=== PATIENT | female | born 1990 | race Caucasian/White ===

== ENCOUNTER 2016-11-26 10:42 | Day surgery (SDC) | payer OTHER ==
[~2016-11-26] VITALS: Ht 175.3 cm; Wt 90.7 kg
[~2016-11-26 10:42] MED LIST: ACET50TA PO; IBUP80TA PO; prenatal vitamins PO
[2016-11-26] MEDS ORDERED: LR 1,000 ML IV ONE (11:00)
[2016-11-26] MEDS ORDERED: TYLE500T78 PO (11:15)
[2016-11-26 11:22] LABS: CONTROL LINE UCG INT CTR LINE PRESENT
[2016-11-26] MEDS ORDERED: MIDAZOLAM INJ 2 MG/2 ML VIAL (J2250) As Ordered ONE (12:07)
[2016-11-26] MEDS ORDERED: fentaNYL 100 MCG/2 ML INJECTION (J3010) As Ordered ONE ×2 (12:07→14:12)
[2016-11-26] MEDS ORDERED: BUPIVACAINE HCL 0.25% 30 ML VIAL As Ordered ONE (12:23)
[2016-11-26] MEDS ORDERED: OXYC1TAB23 PO (12:55)
[2016-11-26] MEDS ORDERED: PROPOFOL 200 MG/20 ML VIAL As Ordered ONE ×2 (12:59→13:52)
[2016-11-26] MEDS ORDERED: ROCURONIUM BROMIDE 50 MG/5 ML VIAL/SYRINGE As Ordered ONE (12:59)
[2016-11-26] MEDS ORDERED: LIDOCAINE 2% INJ 100 MG/5 ML SDV (FOR ANES.) As Ordered ONE (12:59)
[2016-11-26] MEDS ORDERED: dexameTHASONE 4 MG/ML 1ML VIAL (J1100) As Ordered ONE (12:59)
[2016-11-26] MEDS ORDERED: HYDROmorphone HCL 2 MG/ML 1ML VIAL (J1170) As Ordered ONE (13:00)
[2016-11-26] MEDS ORDERED: ONDANSETRON 4MG/2ML VIAL (J2405) As Ordered ONE (13:00)
[2016-11-26] MEDS ORDERED: KETOROLAC 60 MG/2 ML VIAL (J1885) As Ordered ONE (13:15)
[2016-11-26] MEDS ORDERED: GLYCOPYRROLATE INJ 0.2 MG/ML 2 ML VIAL As Ordered ONE (13:44)
[2016-11-26] MEDS ORDERED: NEOSTIGMINE 1MG/ML 5 ML SYRINGE (J2710) As Ordered ONE (13:44)
[2016-11-26] MEDS ORDERED: PERCOCET 5MG/325MG TAB As Ordered ONE (14:12)
[2016-11-26] MEDS: fentaNYL 100 MCG/2 ML INJECTION (J3010) IV PRN ×2 (14:20→14:32)
[2016-11-26] MEDS ORDERED: HYDROmorphone HCL 1 MG/ML SYRINGE (J1170) IV PRN (14:30)
[2016-11-26] MEDS ORDERED: ONDANSETRON 4MG/2ML VIAL (J2405) IV PRN (14:30)
[2016-11-26] MEDS ORDERED: LR 1,000 ML IV SCH ×2 (14:30)
[2016-11-26] MEDS ORDERED: PERCOCET 5MG/325MG TAB PO PRN ×3 (14:30)
[2016-11-26 16:45] VITALS: BP 120/72
--- NOTE | 2016-11-27 14:06 | RO ---
DATE OF PROCEDURE: 11/26/2016 PREPROCEDURE DIAGNOSIS: Undesired fertility. POSTPROCEDURE DIAGNOSIS: Undesired fertility plus right ovarian cyst adenoma. PROCEDURE: Laparoscopic tubal ligation with Falope ring. SURGEON: Dr. Wild Rey. PROCESS DESIGN ENGINEER: ANESTHESIA: General endotracheal. ESTIMATED BLOOD LOSS: Minimal. FINDINGS: Normal uterus. 5-6 cm right ovarian cyst adenoma. Normal fallopian tubes. Normal left ovary. Normal upper abdomen. OPERATIVE SUMMARY: The patient was taken to the operating room where general endotracheal anesthesia was induced. She was prepped and draped in a sterile fashion in dorsal lithotomy position. The bladder was emptied with a catheter. A sponge stick was placed in the vagina to use as a manipulator. Periumbilical incision made with a scalpel. Veress needle was placed through this incision. Pneumoperitoneum was created. Veress needle was removed. 5 mm trocar using Visiport was inserted through this incision. An 8 mm suprapubic port was placed under direct visualization without difficulty. Blunt probe was used to survey pelvic structures. A 5-6 cm right ovarian cyst adenoma was noted. Falope ring was applied to the mid portion of each fallopian tube without difficulty and excellent application was noted. A second 5 mm suprapubic port was placed. The ovarian cyst was elevated and drained with clear cyst fluid noted. Suction industrial controls technician was used to evacuate cyst fluid. Harmonic scalpel was used to amputate the ovarian cyst as well as the cyst wall. The specimens were removed through the 8 mm port. Good hemostasis was noted. All instruments were removed. Pneumoperitoneum was released. Fascia was closed with interrupted suture of #0 Vicryl. Skin was closed with #4-0 Monocryl subcuticular sutures. Sponge, instrument and needle counts were correct. The left arm was positioned and prepped. The patient received 1 mL of 1% lidocaine. A small ricardo was created in the skin of the inner left arm. Mosquito forceps were used to dissect scar tissue and adhesions around the Nexplanon device which was removed in its entirety. Steri-Strip and Band-Aid was placed.
== END 2016-11-26 16:57 | disposition home or self-care (01) ==
LOC: M SDC 10:42
PROVIDERS: ATTEND Specialist
DX: Z30.2 Encounter for sterilization (principal); N83.291 Other ovarian cyst, right side

== ENCOUNTER → 2019-11-08 | Outpatient (CLI) | payer BC ==
[~2019-11-08] MED LIST changes: -ACET50TA PO; +MAPA500T2 PO; +OXYC1TAB23 PO; +TYLE500T78 PO
[2019-11-08 18:27] LABS: BASO # 0.1 10^3/uL (0.0-0.2); BASO % 0.6 % (0.0-1.0); EOS # 0.1 10^3/uL (0.0-0.5); EOS % 1.1 % (0.0-3.0); HEMATOCRIT 38.7 % (36.0-47.0); HEMOGLOBIN 12.3 g/dl (12.0-15.5); LYMPH # 3.1 10^3/uL (1.5-5.0); LYMPH % 35.8 % (24.0-44.0); MEAN CORPUSCULAR HEMOGLOBIN 28.9 pg (27.0-33.0); MEAN CORPUSCULAR HGB CONC 31.8 g/dl (32.0-36.5); MEAN CORPUSCULAR VOLUME 90.8 fl (80.0-96.0); MONO # 0.5 10^3/uL (0.0-0.8); MONO % 5.7 % (0.0-5.0); NEUTROPHILS # 4.8 10^3/uL (1.5-8.5); NEUTROPHILS % 56.4 % (36.0-66.0); PLATELET COUNT, AUTOMATED 329 10^3/uL (150-450); RED BLOOD COUNT 4.26 10^6/uL (4.00-5.40); WHITE BLOOD COUNT 8.6 10^3/uL (4.0-10.0)
[2019-11-08 18:49] LABS: HCG, SERUM QUALITATIVE NEGATIVE (NEGATIVE)
[2019-11-08 18:52] LABS: ALBUMIN 3.8 GM/DL (3.2-5.2); ALT/SGPT 50 U/L (12-78); BILIRUBIN,TOTAL 0.2 MG/DL (0.2-1.0); BLOOD UREA NITROGEN 11 MG/DL (7-18); CALCIUM LEVEL 8.7 MG/DL (8.5-10.1); CARBON DIOXIDE LEVEL 27 MEQ/L (21-32); CHLORIDE LEVEL 110 MEQ/L (98-107); FREE T4 0.99 NG/DL (0.76-1.46); GLOMERULAR FILTRATION RATE > 60.0 (>60); GLUCOSE, FASTING 111 MG/DL (70-100); POTASSIUM SERUM 3.8 MEQ/L (3.5-5.1); SODIUM LEVEL 143 MEQ/L (136-145); TOTAL PROTEIN 7.4 GM/DL (6.4-8.2)
== END ==
LOC: M LAB 17:46
PROVIDERS: ATTEND Physician Assistant
DX: R19.7 Diarrhea, unspecified (principal); R53.83 Other fatigue

== ENCOUNTER 2020-09-28 11:08 | Emergency (ER) | payer BC, OTHER ==
[~2020-09-28] VITALS: Ht 175.3 cm; Wt 104.2 kg
[2020-09-28 11:09] VITALS: BP 168/98
[2020-09-28] MEDS ORDERED: KETOROLAC 30 MG/ML 1ML VIAL IM ONE (14:05)
--- NOTE | 2020-09-28 14:46 | REP ---
INDICATION: back pain, left radiculopathy. COMPARISON: None. TECHNIQUE: Five views FINDINGS: Five views of the lumbosacral spine show no acute fracture, dislocation or subluxation. The intervertebral disc spaces are symmetric and well maintained. There is no spondylolysis or spondylolisthesis. The pedicles are intact bilaterally and there is no destructive osseous lesion. IMPRESSION: Unremarkable lumbosacral spine series. <Electronically signed by Lester Aguirre > 09/28/20 [id number]
[2020-09-28] MEDS ORDERED: KETO10TAB PO (14:49)
[2020-09-28] MEDS ORDERED: CYCL-707 PO (14:49)
== END 2020-09-28 15:00 | disposition home or self-care (01) ==
LOC: M ED 11:08
DX: M54.5 Low back pain (principal)
CPT/HCPCS: 72110; 96372; 99282; J1885

== ENCOUNTER 2022-08-30 09:39 | Emergency (ER) | payer OTHER, SELFPAY ==
[~2022-08-30] VITALS: Ht 177.8 cm; Wt 106.4 kg
[~2022-08-30 09:39] MED LIST changes: +CYCL-707 PO; +KETO10TAB PO
[2022-08-30 12:27] LABS: HEMATOCRIT 42.5 % (36.0-47.0); HEMOGLOBIN 13.7 g/dl (12.0-15.5); MEAN CORPUSCULAR HGB CONC 32.2 g/dl (32.0-36.5); PLATELET COUNT, AUTOMATED 384 10^3/uL (150-450); RED BLOOD COUNT 4.72 10^6/uL (4.00-5.40); WHITE BLOOD COUNT 9.2 10^3/uL (4.0-10.0)
[2022-08-30 12:52] LABS: SALICYLATE LEVEL < 3.0 MG/DL (<30)
[2022-08-30 12:53] LABS: HCG, SERUM QUALITATIVE NEGATIVE (NEGATIVE)
[2022-08-30 12:54] VITALS: BP 147/89
[2022-08-30 12:54] LABS: THYROID STIMULATING HORMONE 1.069 uIU/ML (0.55-4.78)
[2022-08-30 12:55] LABS: ACETAMINOPHEN LEVEL < 2.0 UG/ML (10.0-20.0); ALKALINE PHOSPHATASE 99 U/L (46-116); ALT/SGPT 28 U/L (7.0-40); AST/SGOT 14 U/L (<34); BILIRUBIN,DIRECT 0.1 MG/DL (<0.4); BILIRUBIN,TOTAL 0.4 MG/DL (0.3-1.2); BLOOD UREA NITROGEN 12 MG/DL (9-23); CALCIUM LEVEL 9.1 MG/DL (8.5-10.1); CARBON DIOXIDE LEVEL 26 MMOL/L (20-31); CHLORIDE LEVEL 109 MMOL/L (98-107); CREATININE FOR GFR 0.64 MG/DL (0.55-1.30); GLOMERULAR FILTRATION RATE > 60.0 (>60); GLUCOSE, FASTING 90 MG/DL (60-100); POTASSIUM SERUM 4.1 MMOL/L (3.5-5.1); SODIUM LEVEL 142 MMOL/L (136-145); TOTAL PROTEIN 7.2 G/DL (5.7-8.2)
[2022-08-30 13:01] LABS: AMPHETAMINES LEVEL URINE NEGATIVE (NEGATIVE); BARBITURATES URINE NEGATIVE (NEGATIVE); BENZODIAZEPINES URINE NEGATIVE (NEGATIVE)
[2022-08-30 13:02] LABS: CANNABINOIDS URINE NEGATIVE (NEGATIVE); COCAINE METABOLITE URINE NEGATIVE (NEGATIVE); METHADONE URINE NEGATIVE (NEGATIVE); OPIATES URINE NEGATIVE (NEGATIVE); PHENCYCLIDINE URINE NEGATIVE (NEGATIVE)
== END 2022-08-30 14:07 | disposition home or self-care (01) ==
LOC: M ED 09:39
DX: Z04.6 Encounter for general psychiatric examination, requested by authority (principal)